=== PATIENT | female | born 1965 | race Caucasian/White ===

== ENCOUNTER 2022-03-25 20:29 | Emergency (ER) | payer OTHER ==
[~2022-03-25 20:29] MED LIST: AUGMENTIN 875-1 EACH PO; MOBIC15 MG PO; VOLTAREN100 GM TP
== END 2022-03-26 | disposition home or self-care (01) ==
LOC: ER1 20:29
DX: Z53.21 Procedure and treatment not carried out due to patient leaving prior to being seen by health care provider (principal)